=== PATIENT | female | born 1970 | race Hispanic/Latino ===

== ENCOUNTER → 2023-11-04 | Day surgery (SDC) | payer OTHER ==
[~2023-11-04] MED LIST: FENTANYL CITRATE/PF 100MCG/2 ML INJ ONE; LACTATED RINGER'S 1,000 ML ONE; LIDOCAINE HCL 2% LOCAL INJ 5 ML SDV VIAL INJ ONE; MIDAZOLAM HCL 2 MG/2 ML VIAL ONE; PROPOFOL IV EMULSION 10 MG/ML 20 ML VIAL ONE
[2023-11-04 17:01] VITALS: TEMP 97
[2023-11-04 17:15] VITALS: BP 107/62; PULSE 68; RESP 16; O2SAT 97
== END | disposition home or self-care (01) ==
LOC: OR 12:36
PROVIDERS: ATTEND Internal Medicine Gastroenterology
DX: K62.5 Hemorrhage of anus and rectum (principal); K59.09 Other constipation; K63.5 Polyp of colon; K57.30 Diverticulosis of large intestine without perforation or abscess without bleeding; K64.8 Other hemorrhoids; K64.4 Residual hemorrhoidal skin tags; K21.9 Gastro-esophageal reflux disease without esophagitis; K29.50 Unspecified chronic gastritis without bleeding; R13.10 Dysphagia, unspecified; Z80.0 Family history of malignant neoplasm of digestive organs; K76.0 Fatty (change of) liver, not elsewhere classified; H91.92 Unspecified hearing loss, left ear; Z87.898 Personal history of other specified conditions; M06.9 Rheumatoid arthritis, unspecified; M19.91 Primary osteoarthritis, unspecified site; Z01.810 Encounter for preprocedural cardiovascular examination; Z79.1 Long term (current) use of non-steroidal anti-inflammatories (NSAID)
CPT/HCPCS: 43239; 45385; 93005; J2001; J2250; J2704; J3010; J7121